=== PATIENT | female | born 1945 | race Caucasian/White ===

== ENCOUNTER 2017-06-30 10:47 | Inpatient (IN) | payer MEDICARE, BC ==
[~2017-06-30] VITALS: Ht 165.1 cm; Wt 57.1 kg
[2017-07-21] MEDS ORDERED: LIPITOR10 MG PO (13:43)
[2017-07-21] MEDS ORDERED: CINNAMON500 MG PO (13:44)
[2017-07-21] MEDS ORDERED: CALCIUM500 MG PO (13:44)
[2017-07-21] MEDS ORDERED: VITAMIN C500 M2 PO (13:45)
[2017-07-21] MEDS ORDERED: CYCLOBENZAPRINE10 MG PO (13:46)
[2017-07-21] MEDS ORDERED: FLAGYL500 MG PO (13:46)
[2017-07-21] MEDS ORDERED: MULTIVITAMINS1 EAC7 PO (13:47)
[2017-07-21] MEDS ORDERED: MIRALAX17 GM PO (13:47)
[2017-07-21] MEDS ORDERED: OMEGA 3 1,0001 EACH PO (13:48)
[2017-07-21] MEDS ORDERED: SPIRIVA18 MCG INH (13:48)
[2017-07-21] MEDS ORDERED: VENTOLIN HFA18 GM INH (13:49)
--- NOTE | 2017-07-21 16:44 | NUR ---
[facility] PT CARE NOTE THIS IS A71 YEAR OLD FEMALE PT THAT IS HAVING A TOTAL RIGHT HIP REPLACEMENT ON 07/24/[address] KARTIK GERMAN. PT LIVES WITH HER IN A MOBILE HOME WITH 3 STEPS TO ENTER IT. PT STATES SHE HAS A TUB/SHOWER COMBINATION AND IS GETTING A TRANSFER SEAT. ALREADY GOT A RAISED TOILET SEAT. STATES SHE NEEDS A FRONT WHEELED WALKER YET. TOLD HER WE COULD GET ONE FOR HER WHILE SHE IS HERE. PT STATES SHE IS PLANNING ON DOING PT WITH [facility] [place] WITH SHARON SHAH @ [phone]. PT DENIES FURTHER QUESTIONS WILL FOLLOW HER DURING HER STAY IN THE HOSPITAL. MAURICE
[2017-07-24] MEDS ORDERED: IRON325 M1 PO (06:02)
--- NOTE | 2017-07-24 09:36 | NUR ---
07/24/17 0936 Laurie Gamble REPORT FROM [facility]. PT CAN FEEL/MOVE FEET BUT DECLARES NO PAIN.
--- NOTE | 2017-07-24 10:01 | NUR ---
PT ARRIVED TO ROOM 125 AT 0920. PT RESTING QUIETLY IN BED NOW WITH HOB ELEVATED. SLIGHT EMESIS AFTER TAKING BENEDRYL. EDUCATED TO SIP WATER INSTEAD OF COFFEE. IVF INFUSING AT 125. TRANEXEMIC ACID INFUSING NOW. SCDs IN PLACE. CRYOCUFF ON RIGHT HIP. CMS INTACT. CALL LIGHT WITHIN REACH. NO PAIN.
--- NOTE | 2017-07-24 11:07 | NUR ---
PT C/O LEFT LEG FEELING NUMB "LIKE IT NEEDS TO WAKE UP". EXPLAINED THE SPINAL ANESTHESIA CAN MAKE YOUR LEGS FEEL THIS WAY FOR HOURS. O2 DECREASED TO 1L. WILL MONITOR AND TITRATE PRN. VSS. SOME NAUSEA. GOING SLOW WITH LIQUIDS.
--- NOTE | 2017-07-24 13:17 | NUR ---
2PA WITH FWW TO BSC. TOLERATED WELL. INCONTNENT OF URINE. SOAKED BED. UNABLE TO VOID MORE WHILE ON BSC. CHUCKS PLACED ON BED BEFORE TRANSFERRING PT BACK TO BED. SCDs, CRYOCUFF, ABDUCTOR BETWEEN LEGS, AND CONTINUOUS PULSE OX IN PLACE. BED SHEETS CHANGED AND NEW GOWN ON PT. NO C/O PAIN.
--- NOTE | 2017-07-24 15:39 | NUR ---
PT RECEIVING ECHOCARDIOGRAM NOW
--- NOTE | 2017-07-24 15:48 | NUR ---
PT AWAKE IN BED. HELPED HER TO THE BEDSIDE COMMODE
--- NOTE | 2017-07-24 18:34 | NUR ---
1PA WITH FWW. CRYOCUFF, SCDs, TEDS, ABDUCTOR IN PLACE. VOIDING WELL. IVF. NAUSEA WITH FLUID INTAKE. VOMITING SOME. ENCOURAGE ICE CHIPS UNTIL ABLE TO TOLERATE CLEARS.
--- NOTE | 2017-07-24 19:56 | NUR ---
PT ASSESSMENT COMPLETE. PT DENIES ANY PAIN, N/V, SOB, DIZZINESS, CHEST PAIN AT THIS TIME. IV FLUIDS INFUSING WITHOUT DIFFICULTY. PT ON 1 LPM O2 VIA NASAL CANNULA, SATS 97% PER CONTINUOUS PULSE OXIMETER. PT ON TELEMETRY, SINUS RHYTHM, HR 71. DRESSING TO RIGHT HIP HAS SMALL AMOUNT OF SHADOWING NOTED, OTHERWISE C/D/I. PT DENIES ANY NUMBNESS/TINGLING TO LOWER EXTREMITIES, CMS INTACT. CRYO CUFF/TEDS/SCD/ABDUCTION PILLOW IN PLACE. CALL LIGHT WITHIN REACH. PT DENIES ANY FURTHER NEEDS AT THIS TIME.
--- NOTE | 2017-07-24 22:15 | NUR ---
ASSISTED PT UP TO BEDSIDE COMMODE WITH x1 ASSIST USING FWW, PT TOLERATED AMBULATION WELL. PT VOIDING WITHOUT DIFFICULTY. ASSISTED PT BACK TO BED. PT DENIES ANY PAIN, N/V AT THIS TIME. PT ON TELEMETRY, SINUS RHYTHM, HR 69. IV FLUIDS INFUSING WITHOUT DIFFICULTY. SCHEDULED MEDS GIVEN. ICE CHIPS GIVEN PER PT REQUEST. SATS 97% ON 1 LPM O2 PER CONTINUOUS PULSE OXIMETER. CRYO CUFF/TEDS/SCD/ABDUCTION PILLOW IN PLACE. CALL LIGHT WITHIN REACH. PT DENIES ANY FURTHER NEEDS AT THIS TIME.
--- NOTE | 2017-07-25 01:16 | NUR ---
PT SLEEPING, RR EVEN AND UNLABORED. PT SATS 96% ON 1 LPM O2 PER CONTINUOUS PULSE OXIMETER. PT ON TELEMETRY, HR 62. PT APPEARS COMFORTABLE AT THIS TIME. IV FLUIDS INFUSING WITHOUT DIFFICULTY. CALL LIGHT WITHIN REACH.
--- NOTE | 2017-07-25 02:17 | NUR ---
PT ASSESSMENT COMPLETE. PT HAS NOTICABLE INCREASE OF DRAINAGE ALONG THE UPPER EDGES OF THE MEPILEX DRESSING, STILL WITHIN DRESSING, HAS NOT SATURATED OUTSIDE DRESSING, OPSITE INTACT. WILL CONTINUE TO MONITOR. IV FLUIDS INFUSING WITHOUT DIFFICULTY, CONTINUING FLUIDS ALTHOUGH PT DENIES ANY N/V, D/T LITTLE ORAL INTAKE. PT SATS 97% ON 1 LPM O2 VIA NASAL CANNULA. PT ON TELEMETRY, SINUS RHYTHM, HR 63. PT ASSISTED UP TO BATHROOM, VOIDING WITHOUT DIFFICULTY. PT AMBULATES WITH x1 ASSIST USING FWW, TOLERATES AMBULATION WELL. PT ASSISTED BACK TO BED. CRYO CUFF REFILLED AND IN PLACE. TEDS/SCD/ABDUCTION PILLOW IN PLACE. CALL LIGHT WITHIN REACH. PT DENIES ANY FURTHER NEEDS AT THIS TIME.
--- NOTE | 2017-07-25 02:20 | NUR ---
ASSISTED PATIENT TO THE BEDSIDE COMMODE USING WALKER. PATIENT TOLERATED WELL. PATIENT IS BACK IN BED NOW. CALL LIGHT WITHIN REACH. CRYO CUFF REFILLED.
--- NOTE | 2017-07-25 04:19 | NUR ---
PT SLEEPING, RR EVEN AND UNLABORED. PT SATS 96% ON 1 LPM O2 PER CPOX. TELEMETRY SHOWS SINUS JAVIER, HR 59. IV FLUIDS INFUSING WITHOUT DIFFICULTY. CALL LIGHT WITHIN REACH.
--- NOTE | 2017-07-25 05:26 | NUR ---
PT HAD AN UNEVENTFUL NIGHT, SLEPT MOST OF NIGHT. PT ALERT AND ORIENTED. x1 ASSIST WITH FWW TO BSC. IV FLUIDS INFUSING WITHOUT DIFFICULTY, PT HAS DENIED ANY N/V THIS SHIFT BUT HAS NOT ADVANCED DIET FROM CLEARS AT THIS TIME. PT VOIDING WITHOUT DIFFICULTY. CPOX IN PLACE, 1 LPM O2 VIA NASAL CANNULA. SHADOWING TO MEPILEX DRESSING HAS INCREASED AROUND THE UPPER EDGES OF DRESSING, OPSITE INTACT. CRYO CUFF/TEDS/SCD/ABDUCTION PILLOW IN PLACE. PT ON TELEMETRY, SINUS RHYTHM, HR 60'S.
--- NOTE | 2017-07-25 06:00 | NUR ---
PT C/O ITCHING, REQUESTED TO HAVE TELEMETRY OFF D/T STICKERS CAUSING ITCHING, EDUCATED PT ON REASON FOR TELE, PT VERBALIZED UNDERSTANDING. OFFERED BENEDRYL,PT DECLINED. IV FLUIDS INFUSING WITHOUT DIFFICULTY. PT REQUESTING TO HAVE SOLID FOOD FOR BREAKFAST, AVANCED DIET TO REGULAR. PT DENIES ANY PAIN, N/V. DRESSING TO HIP IS UNCHANGED, SHADOWING NOTED. PT ON ROOM AIR, SATING IN HIGH 90'S. PT ON TELMETRY,SINUS RHYTHM, HR 60. CALL LIGHT WITHIN REACH. PT DENIES ANY FURTHER NEEDS AT THIS TIME.
--- NOTE | 2017-07-25 06:07 | NUR ---
CRYO CUFF REFFILLED.
--- NOTE | 2017-07-25 08:00 | NUR ---
PATIENT SITTING UP IN BED EATING BREAKFAST. TALKED ABOUT GETTING UP TO CHAIR AND BATH. CALL BUTTON IN REACH NO OTHER NEEDS AT THIS TIME.
--- NOTE | 2017-07-25 08:18 | EKG ---
[facility] [address] [facility] [place], [place] [address] Signed Atrial fibrillation with rapid ventricular response Nonspecific ST and T wave abnormality Abnormal ECG No previous ECGs available Confirmed by EDWARD SEYMOUR MD ([id number]) on 07/25/2017 8:18:03 AM Electronically Signed By: EDWARD SEYMOUR MD 07/25/17 0818 PATIENT NAME: BUDDY LAWLER Etelvina Electrocardiogram DATE OF : 43 PHYSICIAN: EDWARD SEYMOUR MD REPORT #: [id number] REPORT IS CONFIDENTIAL AND NOT TO BE RELEASED WITHOUT AUTHORIZATION
--- NOTE | 2017-07-25 09:18 | NUR ---
Pt called to be changed, she coughed and voided. got pt up to chair and placed cryo cuff back on her hip. call light in reach. also educated pt on how to order her own food from the kitchen.
--- NOTE | 2017-07-25 09:35 | NUR ---
FAXED CHART NOTES TO [facility] FOR A WALKER FRONT WHEELED FOR THIS PT. SENT FACESHEET, OP NOTES, PROG NOTE AND ORDER.
--- NOTE | 2017-07-25 10:00 | NUR ---
PATIENT SITTING UP IN CHAIR TALKING TO OT. WILL COME BACK FOR BATH.
--- NOTE | 2017-07-25 10:50 | NUR ---
PATIENT WORKING WITH PT. CLEANED UP ROOM. NO OTHER NEEDS AT THIS TIME.
--- NOTE | 2017-07-25 10:53 | NUR ---
PT WORKING WITH PHYSICAL THERAPY NOW. PAIN WELL UNDER CONTROL. SKIN TEAR TO LEFT ELBOW RE-OPENED AND COVERED WITH ALLEVYN
--- NOTE | 2017-07-25 11:24 | NUR ---
WALKER WAS DELIVERED BY [facility].
--- NOTE | 2017-07-25 13:00 | NUR ---
PATIENT IN BED. FRESH ICE IN CRYO. FRESH ICE WATER. WASHED HANDS AT FACE. CLEAN GOWN AND LINENES ORAL CARE WAS DONE THIS AM. NO OTHER NEEDS AT THIS TIME. CALL BUTTON IN REACH.
--- NOTE | 2017-07-25 14:39 | NUR ---
PATIENT UP WITH PT. NO NEEDS AT THIS TIME.
--- NOTE | 2017-07-25 17:25 | NUR ---
PAIN WELL CONTROLLED WITH SCHEDULED MEDS. WORKED WITH PT AND OT TODAY. 1PA WITH FWW. PHYSICAL THERAPY CLEARED HER FOR DISCHARGE TOMORROW. SALINE LOCKED. TOLERATING REGULAR DIET. NEW IV LAC 22G. TELE DISCONTINUED. DRAINAGE TO RIGHT HIP DRESSING. WATCHING.. MAY NEED TO CHANGE IT IF CONTINUES TO SATURATE.
--- NOTE | 2017-07-25 17:45 | NUR ---
Medications reconciled by pharmacist using physician chart notes and patient interview
--- NOTE | 2017-07-25 18:50 | NUR ---
PATIENT RESTING IN BED. CALL BUTTON IN REACH. FRESH ICE WATER. ICE IN CRYO. WARM BLANKET GIVEN. NO OTHER NEEDS AT THIS TIME.
--- NOTE | 2017-07-25 20:45 | NUR ---
PT ASSESSMENT COMPLETE. PT ALERT AND ORIENTED, PLEASANT AND COOPERATIVE. PT DENIES ANY PAIN, SCHEDULED TORADOL AND OXYCODONE GIVEN. PT DENIES ANY N/V, TOLERATING PO WELL, C/O DRY MOUTH. PT DENIES ANY SOB, ON ROOM AIR, SATS 95%. DRESSING TO RIGHT HIP IS C/D/I, NO SHADOWING NOTED AT THIS TIME, WILL CONTINUE TO MONITOR. CRYO CUFF/TEDS/SCD IN PLACE. IV SALINE LOCKED, FLUSHES WELL. HS MEDS GIVEN. PT ASSISTED UP TO BATHROOM WITH x1 ASSIST, TOLERATING AMBULATION WELL. VOIDING WITHOUT DIFFICULTY. PT BACK IN BED. CALL LIGHT WITHIN REACH. PT DENIES ANY FURTHER NEEDS AT THIS TIME.
--- NOTE | 2017-07-25 20:50 | NUR ---
PATIENT SLEEPING. WHITEBOARD UPDATED.
--- NOTE | 2017-07-26 00:05 | NUR ---
TOOK PATIENT TO BATHROOM. GOT BACK TO BED. REFILLED WATER CUP
--- NOTE | 2017-07-26 00:14 | NUR ---
PT SLEEPING, RR EVEN AND UNLABORED. PT APPEARS COMFORTABLE AT THIS TIME. SATS 91% ON ROOM AIR, HR 70 PER CONTINUOUS PULSE OXIMETER. CALL LIGHT WITHIN REACH.
--- NOTE | 2017-07-26 02:01 | NUR ---
PT UP TO BATHROOM WITH x1 ASSIST USING FWW. ASSISTED BACK TO BED. DRESSING TO RIGHT HIP IS C/D/I, CRYO CUFF REFILLED AND IN PLACE. PT DENIES ANY PAIN, SCHEDULED TORADOL AND OXYCODONE GIVEN. TEDS/SCD IN PLACE. PT SATS 90-92% ON ROOM AIR, HR 70 PER CONTINUOUS PULSE OXIMETER. CALL LIGHT WITHIN REACH. PT DENIES ANY FURTHER NEEDS AT THIS TIME.
--- NOTE | 2017-07-26 03:26 | NUR ---
STAFF ASSISTED PT TO CHAIR, CALL LIGHT WITHIN REACH. PT DID NOT USE CALL LIGHT AND AMBULATED INDEPENDENTLY FROM CHAIR BACK TO BED WITHOUT STAFF PRESENT. EDUCATED PT ON IMPORTANCE OF USING CALL LIGHT AND HAVING STAFF IN ROOM DURING AMBULATION FOR SAFETY,PT VERBALIZED UNDERSTANDING AND AGREES SHE WILL CALL STAFF AT ANY TIME THAT SHE NEEDS TO GET OUT OF BED. PT STATES "I DID NOT WANT TO BE A BOTHER", EDUCATED PT THAT SAFETY IS MOST IMPORTANT AND STAFF IS ALWAYS AVAILABLE AND WILLING TO HELP. PT VERBALIZED UNDERSTANDING. DRESSING C/D/I, CRYO CUFF IN PLACE. TEDS/SCD IN PLACE. PT DENIES ANY PAIN. WARM BLANET GIVEN FOR COMFORT. CALL LIGHT WITHIN REACH. PT DENIES ANY FURTHER NEEDS AT THIS TIME.
--- NOTE | 2017-07-26 04:57 | NUR ---
PT HAD AN UNEVENTFUL NIGHT, SLEPT MOST OF NIGHT. PT SALINE LOCKED, PATENT AND INTACT. PT DENIED ANY PAIN, RECEIVED SCHEDULED OXYCODONE AND TORADOL. PT DENIED ANY SOB, N/V. SATS LOW 90'S ON ROOM AIR. DRESSING TO KNEE IS C/D/I, CRYO CUFF IN PLACE. TEDS/SCD IN PLACE. PT VOIDING WELL. PT AMBULATES WITH x1 ASSIST USING FWW. PT PLAN IS TO D/C HOME TODAY.
--- NOTE | 2017-07-26 07:45 | NUR ---
RECIEVED REPORT FROM DAY SHIFT NURSE. PT RESTING IN BED. DENIES NEEDS. CALL VILLA IN REACH.
--- NOTE | 2017-07-26 08:30 | NUR ---
PATIENT SITTING AT THE SIDE OF THE BED. ASSISTED PATIENT WITH PUTTING UP FEET. PATIENT SITTING UP TO FINISH BREAKFAST. REMINDED PATIENT TO CALL FOR HELP TO GET UP. CALL BUTTON IN REACH. BED ALARM ON. NO OTHER NEEDS AT THIS TIME.
--- NOTE | 2017-07-26 09:42 | NUR ---
PT UP TO BATHROOM WITH MINIMAL ASSIST. VOIDING WELL. IN ROOM. PT BACK TO BED. C/O PAIN 01/30...SCHEDULED PAIN MEDS GIVEN. CRYO ON R HIP. DRESSING C/D/I. PT DENIES FURTHER NEEDS. CALL VILLA IN REACH.
--- NOTE | 2017-07-26 11:00 | NUR ---
PT RESTING IN BED. AT BEDSIDE. DENIES DIZZINESS. STATES PAIN IS TOLERABLE. MEAL TRAY DELIVERED, DENIES NEEDS. CALL VILLA IN REACH.
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
[2017-07-26] MEDS ORDERED: OXYCODONE HCL5 MG PO (11:56)
[2017-07-26] MEDS ORDERED: HYDROCODON-ACE1 EA11 PO (11:56)
[2017-07-26] MEDS ORDERED: MIRALAX17 GM PO (11:56)
--- NOTE | 2017-07-26 13:00 | NUR ---
Assist patient to bathroom, bed bath and back to chair. oral care was done this am. Cryo on. Call button in reach. in room. asked to let us know if he leaves. No other needs at this time.
--- NOTE | 2017-07-26 14:19 | NUR ---
PT RESTING IN BED. STATES SHE IS READY TO GO HOME. PT WORKED WITH PHYSICAL THERAPY AND DID NOT GET DIZZY. MAYITO GAVE HER THE "OKAY" TO GO HOME. WAITING FOR D/C ORDERS FROM . CALL ALLEN IN REACH.
[2017-07-26] MEDS ORDERED: METOPROLOL TART25 MG PO (15:43)
[2017-07-26] MEDS ORDERED: XARELTO10 MG PO (15:56)
== END 2017-07-26 16:29 | disposition home or self-care (01) | DRG 470 ==
LOC: MS 07-24 05:40 → DSVR 07-24 05:40 → MS 07-24 06:45
PROVIDERS: ADMIT Specialist
PROC: 0SR90JZ Replacement of Right Hip Joint with Synthetic Substitute, Open Approach (ICD-10-PCS; principal; 2017-07-24 06:45)
DX: M16.11 Unilateral primary osteoarthritis, right hip (principal); I97.89 Other postprocedural complications and disorders of the circulatory system, not elsewhere classified; J44.9 Chronic obstructive pulmonary disease, unspecified; E78.5 Hyperlipidemia, unspecified; Z85.3 Personal history of malignant neoplasm of breast; F17.210 Nicotine dependence, cigarettes, uncomplicated
CPT/HCPCS: 01214; 36415; 72170; 80048; 80069; 83735; 85025; 93005; 93010; 93306; 94640; 94667; 94668; 94762; 97110; 97116; 97161; 97165; 97535; 99406; C1776; J0690; J1100; J1200; J1885; J2250; J2274; J2370; J2405; J2704; J2765; J3010; J3475; J7120